=== PATIENT | male | born 1985 | race Caucasian/White ===

== ENCOUNTER 2016-05-29 17:33 | Emergency (ER) | payer OTHER ==
[~2016-05-29] VITALS: Ht 182.9 cm; Wt 136.1 kg
[~2016-05-29 17:33] MED LIST: VALIUM2 MG PO
--- NOTE | 2016-05-29 19:19 | ED GI/GU/ABDOMINAL COMPLAINT ---
History of Present Illness General Chief Complaint: Nausea, Vomiting, Diarrhea Stated Complaint: VOMITING X 14 HRS, HEADACHE Source: patient Exam Limitations: no limitations Vital Signs & Intake/Output Vital Signs & Intake/Output Vital Signs Date Time Temp Pulse Resp B/P Pulse O2 O2 Flow FiO2 Ox Delivery Rate 05/29 2122 97.8 74 18 132/83 96 Room Air 05/29 2004 Room Air 05/29 1747 99.6 100 16 109/79 100 Room Air ED Intake and Output 05/30 0000 05/29 1200 Intake Total 1000 Output Total Balance 1000 Intake, IV 1000 Patient 300 lb Weight Allergies Coded Allergies: NO KNOWN ALLERGIES (08/26/14) Reconcile Medications Cyanocobalamin (Vitamin B-12) (Unknown Strength) TABLET (Unknown Dose) PO AD SUPPLEMENT (Reported) Diazepam 5 MG TABLET 1 TAB PO QPM MUSCLE SPASMS/SLEEP (Reported) Melatonin 5 MG TABLET 1 TAB PO QPM SLEEP (Reported) Ondansetron (Zofran Odt) 4 MG TAB.RAPDIS 1 TAB SL TID PRN NAUSEA, VOMITING Oxycodone HCl 10 MG TABLET 1 TAB PO Q6-8H PRN PAIN (Reported) Promethazine HCl (Phenergan) 25 MG SUPP.RECT 1 SUPP AR TID PRN NAUSEA/VOMITING Tramadol HCl 50 MG TABLET 1-2 TAB PO TID PRN PAIN TWENTY...[id number] Triage Note: PT TO ED FOR "UNCONTROLLABLE VOMITING FOR THE PAST 14 HOURS" PT REPORTING SEVERE ABD PAIN, HX OF GASTROPARESIS, ABLE TO TOLERATE TOAST AND EGGS THIS AM WELL HIS TID OXYCODONE. UNABLE TO TOLERATE ANYTHING BY MOUTH SINCE. DENIES DIARRHEA, REPORTING "DARKER THAN NORMAL STOOLS" OVER PAST 24 HOURS. Triage Nurses Notes Reviewed? yes Onset: Gradual Duration: hour(s): Timing: recent history Quality/Severity: cramping Location: epigastric Radiation: no radiation Activities at Onset: none Prior Abdominal Problems: similar symptoms Modifying Factors: Worsens With: vomiting. Associated Symptoms: abdominal pain, nausea/vomiting HPI: 31-year-old gentleman history of gastroparesis and chronic neck pain presents with vomiting for more than 14 hours and a migraine headache. He is uncertain of the etiology. He notes that he has been, "vomiting all day. I can't keep anything down." He has burning mid epigastric abdominal discomfort. He has no diarrhea. He states that he also has a migraine headache. He has no fever chills dysuria chest pain shortness of breath or syncopal type symptoms. Past History Travel History Traveled to [place] past 21 day No Medical History Any Pertinent Medical History? 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 No Review of Systems Review of Systems Constitutional: Reports: no symptoms. EENTM: Reports: no symptoms. Respiratory: Reports: no symptoms. Cardiovascular: Reports: no symptoms. GI: Reports: no symptoms. Genitourinary: Reports: no symptoms. Musculoskeletal: Reports: no symptoms. Skin: Reports: no symptoms. Neurological/Psychological: Reports: no symptoms. Hematologic/Endocrine: Reports: no symptoms. Immunologic/Allergic: Reports: no symptoms. All Other Systems: Reviewed and Negative Physical Exam Physical Exam General Appearance: well developed/nourished, mild distress Head: atraumatic, normal appearance Eyes: Bilateral: normal appearance, PERRL, EOMI. Ears, Nose, Throat, Mouth: hearing grossly normal Neck: normal inspection, supple, full range of motion, normal alignment Respiratory: normal breath sounds, chest non-tender, no respiratory distress, quiet respiration, lungs clear Cardiovascular: regular rate/rhythm Gastrointestinal: normal bowel sounds, soft, mild midepigastric tenderness. No rebound no guarding. No Bryant sign. No right lower quadrant tenderness Back: normal inspection Extremities: normal range of motion, evidence of injury Neurologic/Psych: no motor/sensory deficits, awake, alert, oriented x 3 Skin: intact, normal color, warm/dry Core Measures ACS in differential dx? No Severe Sepsis Present: No Septic Shock Present: No Progress Differential Diagnosis: gastroenteritis versus reflux versus gastroparesis versus migraine headache versus other Plan of Care: Orders Procedure Date/time Status LIPASE 05/29 1912 Complete HEPATIC FUNCTION PANEL 05/29 1912 Complete CBC WITHOUT DIFFERENTIAL 05/29 1912 Complete BASIC METABOLIC PANEL 05/29 1912 Complete AMYLASE 05/29 1912 Complete Current Medications Sig/Iliana Start time Last Medication Dose Stop Time Status Admin Ondansetron HCl 4 MG ONCE ONE 05/29 1914 CAN (Zofran) 05/29 1915 Laboratory Tests 05/29/161952: Anion Gap 15, Estimated GFR > 60, BUN/Creatinine Ratio 12.9, Glucose 95, Calcium 9.8, Total Bilirubin 1.0, Direct Bilirubin 0.5 H, AST 29, ALT 37, Alkaline Phosphatase 71, Total Protein 7.7, Albumin 4.3, Amylase 40, Lipase 75, CBC w Diff NO MAN DIFF REQ, RBC 5.68, MCV 86.0, MCH 28.3, RDW 13.7, MPV 8.1, Gran % 82.3 H, Lymphocytes % 11.8 L, Monocytes % 5.3, Eosinophils % 0.1, Basophils % 0.5, Absolute Granulocytes 9.8 H, Absolute Lymphocytes 1.4, Absolute Monocytes 0.6, Absolute Eosinophils 0, Absolute Basophils 0.1, PUBS MCHC 32.9 L Initial ED EKG: none Departure Departure Disposition: HOME OR SELF CARE Condition: Stable Clinical Impression Primary Impression: Vomiting Secondary Impressions: Headache Referrals: TONIE STEELE,BRIAN (PCP/Family) Departure Forms: Customer Survey General Discharge Information Prescriptions: Current Visit Scripts Ondansetron (Zofran Odt) 1 TAB SL TID PRN NAUSEA, VOMITING #10 TAB Ref 1 Promethazine HCl (Phenergan) 1 SUPP AR TID PRN NAUSEA/VOMITING #12 SUPP Ref 1 Tramadol HCl 1-2 TAB PO TID PRN PAIN #20 TAB TWENTY...[id number] Comments After supportive measures, patient feeling better. Tolerated fluids in the ED. Patient safe for discharge with close follow-up by his PMD.
[2016-05-29 20:04] LABS: ABSOLUTE BASOPHIL COUNT 0.1 /CUMM (0.0-0.2); ABSOLUTE EOSINOPHIL COUNT 0 /CUMM (0.0-0.7); ABSOLUTE GRANULOCYTE CT 9.8 /CUMM (1.4-6.5); ABSOLUTE LYMPH COUNT 1.4 /CUMM (1.2-3.4); ABSOLUTE MONOCYTE COUNT 0.6 /CUMM (0.10-0.60); BASOPHIL % 0.5 % (0.0-2.0); EOSINOPHIL % 0.1 % (0-5); GRANULOCYTE % 82.3 % (42.2-75.2); HEMATOCRIT 48.8 % (42-52); MEAN CORPUSCULAR HGB 28.3 PG (27.0-31.0); MEAN CORPUSCULAR HGB CONC 32.9 G/DL (33.0-37.0); MEAN PLATELET VOLUME 8.1 FL (7.4-10.4); PLATELET COUNT 297 /CUMM (130-400); RBC DISTRIBUTION WIDTH 13.7 % (11.5-14.5); RED BLOOD CELL CT 5.68 /CUMM (4.70-6.10); WHITE BLOOD CELL COUNT 11.9 /CUMM (4.8-10.8)
[2016-05-29] MEDS ORDERED: DIAZEPAM5 M1 PO (20:53)
[2016-05-29] MEDS ORDERED: OXYCODONE HCL10 M2 PO (20:53)
[2016-05-29] MEDS ORDERED: MELATONIN5 M7 PO (20:54)
[2016-05-29] MEDS ORDERED: VITAMIN B-121000 MC3 PO (20:55)
[2016-05-29 21:23] VITALS: BP 132/83
[2016-05-29] MEDS ORDERED: PHENERGAN25 M2 PR (21:52)
[2016-05-29] MEDS ORDERED: ZOFRAN ODT4 M1 SL (21:52)
[2016-05-29] MEDS ORDERED: TRAMADOL HCL50 M1 PO (21:54)
== END 2016-05-29 22:15 ==
LOC: ERH 17:33
PROVIDERS: Pediatrics
DX: R11.10 Vomiting, unspecified (principal); R51 Headache
CPT/HCPCS: 96374; 96375; J1885; J2405; J3101